=== PATIENT | female | born 1950 | race Caucasian/White ===

== ENCOUNTER 2016-11-15 09:35 | Outpatient (CLI) | payer OTHER ==
--- NOTE | 2016-11-15 15:04 | DIAGNOSTIC IMAGING REPORT ---
PROCEDURE: NM HEPATOBILIARY IMAGING INDICATION: ABD PAIN TECHNIQUE: 8 mCi of technetium-99m Choletec was injected intravenously and images were acquired over a one hour time interval. There was nonvisualization of the gallbladder after 60 minutes and 1.9 mg of morphine sulfate administered IV. This was followed by a fatty meal replacement shake and gallbladder ejection fraction was then calculated. COMPARISON: CT thorax 02/11/2016. FINDINGS: Decreased uptake of the left hepatic lobe consistent with a 1.6 cm left hepatic lobe cyst. Small bowel activity is seen at 14 minutes. The gallbladder visualized following administration of morphine sulfate. Following a fatty meal replacement shake, ejection fraction was zero at 20, 40 and 60 minutes. IMPRESSION: 1. Patent cystic and common bile ducts 2. Gallbladder dyskinesia
[2016-11-18] MEDS ORDERED: GUMMI BEAR MULTIVITA PO (19:04)
[2016-11-18] MEDS ORDERED: CALCIUM 600 PO (19:04)
[2016-11-18] MEDS ORDERED: MULTIVITAMIN GUMMIES PO (19:05)
[2016-11-18] MEDS ORDERED: VITAMIN B COMPLE1 PO (19:06)
[2016-11-18] MEDS ORDERED: MAGNESIUM400 M1 PO (19:06)
[2016-11-18] MEDS ORDERED: K-BICARB99 MG PO (19:07)
== END 2016-11-15 23:00 ==
LOC: NM SRH 09:35
DX: K82.8 Other specified diseases of gallbladder (principal)

== ENCOUNTER 2016-11-22 06:31 | Day surgery (SDC) | payer OTHER ==
[~2016-11-22] VITALS: Ht 157.5 cm; Wt 45.1 kg
[~2016-11-22 06:31] MED LIST: CALCIUM 600 PO; GUMMI BEAR MULTIVITA PO; K-BICARB99 MG PO; MAGNESIUM400 M1 PO; MULTIVITAMIN GUMMIES PO; VITAMIN B COMPLE1 PO
--- NOTE | 2016-11-22 07:18 | NUR ---
PREOP INSTRUCTIONS GIVEN TO PATIENT. QUESTIONS ANSWERED. PATIENT VERBALIZES UNDERSTANDING. CONSENT CONFIRMED. PREOP MEDS GIVEN IN ADJUSTED DOSE. PATIENT RESTING COMFORTABLY. KB
[2016-11-22] MEDS ORDERED: HYCET1 ML PO (08:49)
--- NOTE | 2016-11-22 08:52 | Provider's Discharge Care Plan ---
Problem, Goal, Plan Problem List 1. S/P LAPROSCOPIC CHOLECYSTECTOMY AND IOC Goals: Improve disease control, Therapeutic intervention Instructions: Follow up as directed, Take meds as directed, CLEAR LIQUID DIET FOR 24HRS THEN SLOWLY ADVANCE
--- NOTE | 2016-11-22 08:58 | DIAGNOSTIC IMAGING REPORT ---
PROCEDURE: XR INTRAOPERATIVE LAP LYLE INDICATION: BILIARY DYSKINESIA TECHNIQUE: Intraoperative fluoroscopy provided for Dr. Crawford performing an intraoperative cholangiogram following cholecystectomy. Total fluoroscopy time 5 seconds. Cumulative dose 0.6 mGy. COMPARISON: No progressive hepatobiliary scan 11/15/2016. FINDINGS: Two intraoperative fluoroscopic spot images of the right upper quadrant of the abdomen demonstrate cannulation of the cystic duct stump and opacification of the intrahepatic and extrahepatic biliary tree. There are no filling defects. There is normal passage of contrast into the duodenum. IMPRESSION: 1. Negative intraoperative cholangiogram.
--- NOTE | 2016-11-22 09:20 | NUR ---
ARRIVED TO UNIT, MONITORS PLACED, INCLUDING CO2 MNITOR, VALUE 33 ON ADMISSION. GROGGY, RESPONSIVE TO VOICE, RESPONSE DELAYED, LIMITED. HOB ELEVATED 30 DEGREES, GOGO HUGGER EMPOYED
--- NOTE | 2016-11-22 09:25 | NUR ---
O2 FLOW DIMINISHED TO 2L/NC, etCO2 VALUE 30/31. PATIENT DENIES ANY DISCOMFORT AT THIS TIME. TEMP NOW RECORDS AT 97.8 DEGREESW
--- NOTE | 2016-11-22 10:24 | NUR ---
PATIENT RETURNED TO THE FLOOR SLEEPY BUT AROUSABBLE. PALE BUT WARM. VSS. 02 @ 2L PER TOPOGRAPHIC COMPUTATOR, SATS 95%. CONTINUE TO MONITOR. KB
--- NOTE | 2016-11-22 10:40 | NUR ---
KETOROLAC DOSE HELD, IBUPROPCARLOS BRADFORD NOTED, md AWARE. PT SEEN BY MD PRIOR TO TRANSFER TO FLOOR, AWAKENENED EASILY AT TIME OF TRANSFER TO UNITENNTURES IN MOUTH. REPORT GIVEN
--- NOTE | 2016-11-22 10:59 | NUR ---
PATIENT WAKING UP, TAKING ICE CHIPS. FRIEND IN ROOM. RA SATS 94%. KB
--- NOTE | 2016-11-22 11:44 | NUR ---
PATIENT AWAKE AND UP IN CHAIR. C/O MOD-SEVERE ABD PAIN IN RUQ. CLEAR LIQUIDS OFFERED. WAITING FOR ORDER FOR PAIN MEDS. FRIEND IN ROOM, KB
--- NOTE | 2016-11-22 12:02 | NUR ---
NAUSEA WITH DRY HEAVING AFTER DEMERAL. ZOFRAN 4MG IVP GIVEN. PATIENT INSTRUCTED TO STICK WITH ICE CHIPS. KB
[2016-11-22 12:19] VITALS: BP 124/76
--- NOTE | 2016-11-22 13:22 | NUR ---
CONTINUES TO BE SLEEPY, BUT NAUSEA IS IMPROVING. MINIMAL PAIN RELIEF, BUT PATIENT WANTS TO GO HOME. AMBULATED IN THE [place] WITHOUT DIFFICULTY. VOIDED. DISCHARGE INSTRUCTIONS GIVEN TO PATIENT. QUESTIONS ANSWERED. PATIENT VERBALIZES UNDERSTANDING. DISCHARGED HOME WITH HER FRIEND. KB
--- NOTE | 2016-11-22 14:09 | OPERATIVE REPORT ---
DATE OF SURGERY: 11/22/2016 SURGEON: Lorraine Crawford III, MD TYPE CASTING MACHINE OPERATOR: None. PREOPERATIVE DIAGNOSIS: 1. Dyskinesia of gallbladder POSTOPERATIVE DIAGNOSIS: 1. Dyskinesia of gallbladder PROCEDURE PERFORMED: 1. Laparoscopic cholecystectomy with fluoroscopic intraoperative cholangiogram ANESTHESIA: General endotracheal. ESTIMATED BLOOD LOSS: None. FLUIDS: 600 cc of lactated Ringers. PATHOLOGY SPECIMEN: Gallbladder. INDICATIONS: The patient is a 66-year-old female with chronic epigastric abdominal pain and recent HIDA scan showed 0 ejection fraction. Tentative diagnosis of dyskinesia of the gallbladder. Scheduled for laparoscopic cholecystectomy. SURGICAL FINDINGS: Adhesions to the dome of the right lobe of the liver. Adhesions to the gallbladder. Intraoperative cholangiogram showed free flow of contrast material into the duodenum, visualization of intrahepatic ducts, hepatic duct, and common bile duct, with generous visualization of the pancreatic duct. SURGICAL TECHNIQUE: The patient was brought to the operating room and placed in the dorsal supine position where she underwent general endotracheal anesthesia by the anesthesiology department. After proper anesthesia had taken effect, the patient 's abdomen was prepped using Betadine and draped in a sterile fashion. An infraumbilical incision made, carried down through skin and subcutaneous tissue. A Veress needle was inserted through this site, into the abdominal cavity and, after ascertaining its appropriate position with suction irrigation, pneumoperitoneum obtained using CO2 insufflation to approximately 14-15 mmHg pressure. Once this pressure was reached, the Veress needle was removed and replaced with a 10 mm trocar. The trocar was removed, leaving the sleeve behind, through which a laparoscopic video camera was introduced into the abdominal cavity. Under direct visualization, a separate 10 mm trocar was placed in the subxiphoid region. It entered the abdominal cavity under direct visualization. Under direct visualization, two 5 mm trocars were placed in right anterolateral abdominal wall, approximately 3-4 fingerbreadths below the costal margin. Each entered the abdominal cavity under direct visualization. Trocars were removed, leaving the sleeves behind, through which laparoscopic instrumentation was introduced into the abdominal cavity. The gallbladder was grasped and retracted cephalad. Adhesions to the anterior wall of gallbladder were taken down carefully using electrocautery dissection. In the process, we were able to isolate the cystic duct circumferentially, using a combination of blunt dissection and electrocautery. A clip was placed at the junction of the neck of the gallbladder and the cystic duct. A small incision was made in the anterior surface of the cystic duct. A percutaneous cholangiogram catheter was threaded through the anterior abdominal wall, into the cystic duct, clipped into position and a fluoroscopic intraoperative cholangiogram obtained, with the aforementioned findings noted. Once completed, the percutaneous cholangiogram catheter was retrieved from the cystic duct and the abdominal cavity. The distal cystic duct was clipped in continuity, divided. The cystic artery identified, clipped in continuity and divided. The gallbladder was taken down from its bed in a retrograde fashion. Once completely freed from its bed, the gallbladder was placed in a sterile specimen container bag and retrieved from the abdominal cavity and sent to pathology. The gallbladder bed was inspected for hemostasis. Assuring to have proper hemostasis, the right upper quadrant was irrigated with warm normal saline and antibiotic solution and the irrigant suctioned out. Approximately 30 mL of 0.5% Marcaine with epinephrine was sprayed over the right and left dome of the liver for postoperative analgesia. The pneumoperitoneum was released. All trocars removed from the abdominal cavity. All trocar sites approximated using 4-0 subdermal Polysorb and Steri-Strips. A sterile pressure occlusive dressing was placed over each site. The patient tolerated the procedure well, was extubated and transferred to the recovery room in stable condition. There were no intraoperative or anesthetic complications.
== END 2016-11-22 13:10 | disposition home or self-care (01) ==
LOC: OR SRH 06:31 → SCU SRH 06:32 → OR SRH 08:30
PROVIDERS: Specialist
PROC: 0FT44ZZ Resection of Gallbladder, Percutaneous Endoscopic Approach (ICD-10-PCS; principal; 2016-11-22 08:30)
PROC: BF131ZZ Fluoroscopy of Gallbladder and Bile Ducts using Low Osmolar Contrast (ICD-10-PCS; principal; 2016-11-22 08:30)
DX: K82.8 Other specified diseases of gallbladder (principal); K81.1 Chronic cholecystitis; K66.0 Peritoneal adhesions (postprocedural) (postinfection); J44.9 Chronic obstructive pulmonary disease, unspecified; Z72.0 Tobacco use
CPT/HCPCS: 29229; 29240; 50002; 60001; 70002; 80102; 80212; 80248; 82669; 82794; 82807; 83339; 83348; 83526; 83587; 83920; 83937; 83982; 84038; 90047; 90074; 95059

== ENCOUNTER → 2016-12-09 | Outpatient (CLI) | payer OTHER ==
[~2016-12-09] MED LIST changes: +HYCET1 ML PO
--- NOTE | 2016-12-09 12:38 | DIAGNOSTIC IMAGING REPORT ---
PROCEDURE: MG BILATERAL SCREENING W/CAD INDICATION: Screening. Family history breast carcinoma (grandmother, aunts). TECHNIQUE: Bilateral CC and MLO digital views. COMPARISON: Compared to 08/23/2014, 06/19/2013, and 06/27/2012. FINDINGS: Computer-aided detection applied. Moderately dense with a few dystrophic calcifications. No change. IMPRESSION: 1. Negative mammogram. RESULT CODE: 1- Negative. A. A negative report should not delay biopsy if a dominant or clinically suspicious mass is present. 10-15% of cancers are not identified by x-ray. B. A negative report may reinforce clinical impression. C. Adenosis and dense breasts may obscure an underlying neoplasm. D. False positive reports average 6-10%. E.. A yearly screening mammogram is recommended. A reminder letter will be scheduled.
== END ==
LOC: MAM SRH 09:11
DX: Z12.13 Encounter for screening for malignant neoplasm of small intestine (principal); Z80.3 Family history of malignant neoplasm of breast